=== PATIENT | female | born 1950 | race Caucasian/White ===

== ENCOUNTER → 2020-08-10 10:20 | Outpatient (BNV) | payer BC, SELFPAY | PROVIDERS: PCP Internal Medicine; Visit Provider Internal Medicine Medical Oncology | DX: D80.1 Nonfamilial hypogammaglobulinemia (principal) | CPT/HCPCS: 99213; 99214 ==

== ENCOUNTER 2023-06-21 14:05 | Outpatient (AMB) | payer BC, SELFPAY ==
[2023-06-21 14:09] VITALS: BP 106/62; PULSE 77; O2SAT 98; BMI 25.2
--- NOTE | 2023-06-21 14:09 | A.OFFPC_ITS ---
Vital Signs 06/21/23 14:09 Height 5 ft 3 in Weight 142 lb BMI 25.2 BP 106/62 Blood Pressure Location Lt brachial Position Sitting Pulse 77 Pulse Source Pulse Oximeter Pulse Oximetry (%) 98 Oxygen Delivery Method Room Air Intake Visit Reasons: Left foot swelling Switch Coupler: Not Required per policy Accompanied by: Self / Same As Patient Allergies midazolam [From Versed] Allergy (Verified 06/21/23 14:10) Vomiting doxycycline [From Periostat] Adverse Reaction (Mild, Verified 06/21/23 14:10) Redness of Skin hydroxyzine [Vistaril] Adverse Reaction (Unknown, Verified 06/21/23 14:10) Hypertension Atarax Allergy (Unknown, Uncoded 06/21/23 14:10) Elevated BP and Pulse Medication List - Last Reconciled 06/22/23 by Alexi Duong MD ascorbic acid (vitamin C) (Vitamin C) 500 mg PO DAILY aspirin 81 mg PO USEASDIRECTD [B12 500 mcg PO QWEEK] calcium citrate-vitamin D3 315 mg-5 mcg (200 unit) 1 tab PO USEASDIRECTD estradiol 0.01%(0.1mg/gram) 1 appful vaginal DAILY methocarbamol 500 mg PO QID PRN [multivitamin 1 tab PO DAILY] pyridoxine (vitamin B6) 100 mg PO 2XW triamcinolone acetonide 0.1% 1 appl topical BID Tobacco use date assessed: 01/09/23 Fall risk assessment: No Falls in past year Last assessed Fall Risk: 06/21/23 Dental Screening Dental Screen Date: 06/21/23 Did you have a dental visit in the last 12 months?: Yes Did you have a dental problem in the last 6 months where you did not have access to dental care?: No Was dental information given to patient?: Patient has dentist HPI Left foot swelling HPI Details leftr foot swellinhg fo a week PFSH Medical History Physical exam Urinary urgency Osteoarthritis 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 Erythema multiforme History of basal cell cancer Medial meniscus tear Diverticulosis Colonoscopy planned Right leg DVT Right patella fracture Hypogammaglobulinemia Surgical History History of colonoscopy History of Mohs 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 History of tubal ligation Family History Mother H/O mitral valve replacement COPD (chronic obstructive pulmonary disease) Hx of CABG Father Colon cancer Diabetes Brother CHF (congestive heart failure) COPD (chronic obstructive pulmonary disease) Brother ETOH abuse Liver cirrhosis Substance use disorder Brother ETOH abuse Substance use disorder Social History Household Members: None Housing: Condominium Are you a primary resident care aid to a significant other at home: No Do you presently have visiting nurse or other home services: No Alcohol intake: current Alcohol intake frequency: holidays/special occasions only Alcohol type: beer Patient Tobacco Use Status: Former Tobacco user Quit Date: 2001 Tobacco use type: Cigarette e-Cigarette/Vaping Use: Never Used Second Hand Smoke Exposure: Yes (when she was younger) service: No Current occupational status: retired Current occupational exposures/hazards: No Cognitive needs: No Hearing needs: No Vision needs: Yes Questionnaire PHQ-9 Over the last 2 weeks, how often have you been bothered by any of the following problems? 1. Little interest or pleasure in doing things: not at all 2. Feeling down, depressed, or hopeless: not at all 3. Trouble falling or staying asleep, or sleeping too much: not at all 4. Feeling tired or having little energy: not at all 5. Poor appetite or overeating: not at all 6. Feeling bad about yourself - or that you are a failure or have let yourself or your family down: not at all 7. Trouble concentrating on things, such as reading the newspaper or watching television: not at all 8. Moving or speaking so slowly that other people could have noticed. Or the opposite - being so fidgety or restless that you have been moving around a lot more than usual: not at all 9. Thoughts that you would be better off or of hurting yourself in some way: not at all Total score: 0 Depression Screening Interpretation: Negative Depression Screening Done: Yes 67443 - PHQ-9 Billing: Yes Source: Developed by Drs. Yovani Oliva, Windy Héctor Day and colleagues, with an educational perla from [employer]. Thrive Questionnaire Date Thrive assessed: 01/09/23 AUDIT C Alcohol Use Questionnaire (AUDIT-C) 1. How often do you have a drink containing alcohol?: Monthly or less 2. How many drinks containing alcohol do you have on a typical day when you are drinking?: 1 or 2 3. How often do you have six or more drinks on one occasion?: Never Total Score: 1 Score Reviewed/Action Taken: Yes SHARMAINE-7 AMB Questionnaire SHARMAINE-7 Date SHARMAINE - 7 assessed: 01/09/23 Source: Developed by Drs. Yovani Oliva, Héctor Ocampo and colleagues, with an educational perla from [employer]. Review of Systems Const Denies chills, Denies headache(s) and Denies weight loss ENT Denies headache(s) Card Denies chest pain, Denies syncope, Denies irregular heart rhythm and Denies dyspnea Resp Denies chest congestion, Denies cough and Denies dyspnea GI Denies abdominal pain, Denies change in stool character, Denies nausea and Denies vomiting Musc Denies deformity and Denies joint swelling Neuro Denies syncope and Denies headache(s) Physical exam (Primary Care) Vital Signs: Last Vital Signs Pulse 77 06/21/23 14:09 BP 106/62 06/21/23 14:09 Pulse Ox 98 06/21/23 14:09 Oxygen Delivery Method Room Air 06/21/23 14:09 BMI result Body Mass Index 25.2 Tobacco/Smoking Status: Tobacco use Status Tobacco use date assessed 01/09/23 06/21/23 14:10 Patient Tobacco Use Status Former Tobacco user 06/21/23 14:10 Tobacco use type Cigarette 06/21/23 14:10 e-Cigarette/Vaping Use Never Used 06/21/23 14:10 PHQ-9: PHQ-9 Score PHQ-9: Total score 0 06/21/23 14:10 Depression Screening Interpretation: Negative Thrive Assessment: Date of Thrive Assessment Date Thrive assessed 01/09/23 06/21/23 14:10 Const General: cooperative, comfortable, no acute distress and alert Neck Neck: Yes no lymphadenopathy Thyroid: Thyroid normal Resp Effort & Inspection: normal respiratory effort Auscultation: clear to auscultation bilaterally Percussion: percussion normal Cardio Jugular venous distension: no JVD Palpation: normal PMI Rate: regular rate Rhythm: regular rhythm Heart sounds: S1 normal heart sound present and S2 normal heart sound present GI Inspection: Yes normal to inspection Palpation (GI): No hepatosplenomegaly present Skin General skin exam: no rashes or lesions noted Extrem General: Yes no clubbing, cyanosis or edema Assessment and Plan Assessment & Plan (1) Swelling of left foot: Code(s): M79.89 - Other specified soft tissue disorders Plan: US ordered Orders: Orders US venous duplex LE LT 06/21/23 R60.0 - Localized edema Coding Level of Care Code Est Pt Level 3 (42674) Diagnoses Swelling of left foot M79.89
== END 2023-06-21 14:22 | disposition home or self-care (01) ==
PROVIDERS: PCP Internal Medicine; Visit Provider Internal Medicine
DX: M79.89 Other specified soft tissue disorders (principal)
CPT/HCPCS: 99213

== ENCOUNTER 2023-06-22 14:32 | Outpatient (REF) | payer BC, SELFPAY ==
--- NOTE | ~2023-06-22 | US_ITS ---
EXAMINATION: US VENOUS ULTRASOUND WITH DOPPLER LOWER EXTREMITY, LEFT CLINICAL INFORMATION: Localized edema COMPARISON: None available. TECHNIQUE: Ultrasound of the deep veins is performed from the hip to the calf with compression sonography and color and pulse Doppler assessment. Spectral analysis with color-flow imaging is performed. FINDINGS: There is normal venous compression and respiratory variation and augmented flow. The visualized common femoral vein, superficial femoral vein, profunda femoral vein, popliteal vein, and the trifurcation region shows no evidence of deep venous thrombosis. There is no significant popliteal fossa cyst. If the patient's symptoms persist, followup ultrasound in 5 days 7 days might be of value to exclude proximal propagation from a non-visualized calf vein. US/US venous duplex LE LT IMPRESSION: No DVT demonstrated in the left lower extremity.
== END 2023-06-22 14:33 | disposition home or self-care (01) ==
LOC: HO.US 14:32
PROVIDERS: PCP Internal Medicine; Visit Provider Internal Medicine
DX: R60.0 Localized edema (principal)
CPT/HCPCS: 93971

== ENCOUNTER 2024-01-11 10:01 | Outpatient (AMB) | payer BC, SELFPAY ==
[2024-01-11 10:02] VITALS: BP 102/60; PULSE 64; O2SAT 99; BMI 25.2
--- NOTE | 2024-01-11 10:02 | A.OFFPC_ITS ---
Vital Signs 01/11/24 10:02 Height 5 ft 3 in Weight 142 lb 8 oz BMI 25.2 BP 102/60 Blood Pressure Location Lt brachial Position Sitting Pulse 64 Pulse Source Pulse Oximeter Pulse Oximetry (%) 99 Oxygen Delivery Method Room Air Intake Visit Reasons: pe Production Quality Analyst Required: No Door Glass Installer: Not Required per policy Accompanied by: Self / Same As Patient Allergies midazolam [From Versed] Allergy (Verified 01/11/24 10:03) Vomiting doxycycline [From Periostat] Adverse Reaction (Mild, Verified 01/11/24 10:03) Redness of Skin hydroxyzine [Vistaril] Adverse Reaction (Unknown, Verified 01/11/24 10:03) Hypertension Atarax Allergy (Unknown, Uncoded 01/11/24 10:03) Elevated BP and Pulse Medication List - Last Reconciled 01/11/24 by Alexi Duong MD ascorbic acid (vitamin C) (Vitamin C) 500 mg PO DAILY aspirin 81 mg PO USEASDIRECTD [B12 500 mcg PO QWEEK] calcium citrate-vitamin D3 315 mg-5 mcg (200 unit) 1 tab PO USEASDIRECTD estradiol 0.01%(0.1mg/gram) 1 appful vaginal DAILY methocarbamol 500 mg PO QID PRN [multivitamin 1 tab PO DAILY] triamcinolone acetonide 0.1% 1 appl topical BID Tobacco use date assessed: 01/11/24 Fall risk assessment: No Falls in past year Last assessed Fall Risk: 01/11/24 Dental Screening Dental Screen Date: 01/11/24 Did you have a dental visit in the last 12 months?: Yes Did you have a dental problem in the last 6 months where you did not have access to dental care?: No Was dental information given to patient?: Patient has dentist HPI pe HPI Details healthy [facility] Medical History Physical exam Urinary urgency Osteoarthritis 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 Erythema multiforme History of basal cell cancer Medial meniscus tear Diverticulosis Colonoscopy planned Right leg DVT Right patella fracture Hypogammaglobulinemia Surgical History History of colonoscopy History of Mohs 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 History of tubal ligation Family History Mother H/O mitral valve replacement COPD (chronic obstructive pulmonary disease) Hx of CABG Father Colon cancer Diabetes Brother CHF (congestive heart failure) COPD (chronic obstructive pulmonary disease) Brother ETOH abuse Liver cirrhosis Substance use disorder Brother ETOH abuse Substance use disorder Social History Household Members: None Housing: Condominium Are you a primary aged or disabled carer to a significant other at home: No Do you presently have visiting nurse or other home services: No Alcohol intake: current Alcohol intake frequency: holidays/special occasions only Alcohol type: beer Patient Tobacco Use Status: Former Tobacco user Quit Date: 2001 Tobacco use type: Cigarette e-Cigarette/Vaping Use: Never Used Second Hand Smoke Exposure: Yes (when she was younger) service: No Current occupational status: retired Current occupational exposures/hazards: No Cognitive needs: No Hearing needs: No Vision needs: Yes (glasses) Questionnaire PHQ-9 Over the last 2 weeks, how often have you been bothered by any of the following problems? 1. Little interest or pleasure in doing things: not at all 2. Feeling down, depressed, or hopeless: not at all 3. Trouble falling or staying asleep, or sleeping too much: not at all 4. Feeling tired or having little energy: not at all 5. Poor appetite or overeating: not at all 6. Feeling bad about yourself - or that you are a failure or have let yourself or your family down: not at all 7. Trouble concentrating on things, such as reading the newspaper or watching television: not at all 8. Moving or speaking so slowly that other people could have noticed. Or the opposite - being so fidgety or restless that you have been moving around a lot more than usual: not at all 9. Thoughts that you would be better off or of hurting yourself in some way: not at all Total score: 0 Depression Screening Interpretation: Negative Depression Screening Done: Yes 66400 - PHQ-9 Billing: Yes Source: Developed by Drs. Yovani Oliva, Windy Barreto, Héctor Lion and colleagues, with an educational perla from [employer]. Thrive Questionnaire Date Thrive assessed: 01/11/24 I am a: Patient What is your living situation today?: I have a steady place to live Within the past 12 months, did the food you bought not last and you didn't have the money to get more?: Never true Within the past 12 months, did you worry whether your food would run out before you got money to buy more?: Never true Do you have trouble paying for medicines?: No Do you have trouble getting transportation to medical appointments?: No Do you have trouble paying your heating and electricity bill?: No Do you have trouble taking care of your child, family member or friend?: No Do you have trouble with day-to-day activities such as bathing, preparing meals, shopping, managing finances, etc.?: No Are you currently unemployed and looking for a job?: No Are you interested in more education?: No Please select the resources that you would like help with: None THRIVE Score: 0 AUDIT C Alcohol Use Questionnaire (AUDIT-C) 1. How often do you have a drink containing alcohol?: Monthly or less 2. How many drinks containing alcohol do you have on a typical day when you are drinking?: 1 or 2 3. How often do you have six or more drinks on one occasion?: Never Total Score: 1 Score Reviewed/Action Taken: Yes SHARMAIEN-7 AMB Questionnaire SHARMAINE-7 Date SHARMAINE - 7 assessed: 01/11/24 Feeling nervous, anxious, or on edge: 0 = Not at all Not being able to stop or control worryin = Not at all Worrying too much about different things: 0 = Not at all Trouble relaxin = Not at all Being so restless that it is hard to sit still: 0 = Not at all Becoming easily annoyed or irritable: 0 = Not at all Feeling afraid as if something awful might happen: 0 = Not at all Total SHARMAINE-7 score (0-4 normal; 5-9 mild; 10-14 moderate; 15-21 severe): 0 Source: Developed by Drs. Yovani Oliva, Windy Barreto, Héctor Lion and colleagues, with an educational perla from [employer]. SHARMAINE-7 Assessment Billing SHARMAINE-7 Assessment Tool: SHARMAINE-7 Assessment 48192 Review of Systems Const Denies chills, Denies fatigue, Denies headache(s) and Denies weight loss Eyes Denies change in vision, Denies diplopia and Denies eye pain ENT Denies vertigo, Denies dizziness, Denies headache(s) and Denies nasal discharge Card Denies chest pain, Denies rapid heart rate and Denies dyspnea on exertion Resp Denies chest congestion, Denies cough, Denies pain with cough and Denies dyspnea on exertion GI Denies abdominal pain, Denies hematochezia and Denies change in bowel habits Musc Denies myalgias, Denies arthralgias and Denies joint swelling Skin/Breast Denies lesions and Denies unusual bruising Neuro Denies vertigo, Denies dizziness, Denies headache(s) and Denies focal weakness Endo Denies fatigue Physical exam (Primary Care) Vital Signs: Last Vital Signs Pulse 64 01/11/24 10:02 BP 102/60 01/11/24 10:02 Pulse Ox 99 01/11/24 10:02 Oxygen Delivery Method Room Air 01/11/24 10:02 BMI result Body Mass Index 25.2 Tobacco/Smoking Status: Tobacco use Status Tobacco use date assessed 01/11/24 01/11/24 10:04 Patient Tobacco Use Status Former Tobacco user 01/11/24 10:04 Tobacco use type Cigarette 01/11/24 10:04 e-Cigarette/Vaping Use Never Used 01/11/24 10:04 PHQ-9: PHQ-9 Score PHQ-9: Total score 0 01/11/24 10:04 Depression Screening Interpretation: Negative Thrive Assessment: Date of Thrive Assessment Date Thrive assessed 01/11/24 01/11/24 10:04 Const General: cooperative, healthy appearing and no acute distress Orientation/consciousness: oriented to person, oriented to place and oriented to time [facility] Head: Yes normal to inspection, Yes normocephalic and Yes atraumatic Mouth: Normal oral and palatal mucosa present and tongue normal Throat: Yes posterior oropharynx normal and Yes uvula midline Eyes General: appearance normal, both eyes and all related structures Neck Neck: Yes normal visual inspection, Yes full ROM and Yes no lymphadenopathy Thyroid: Thyroid normal Carotids: normal carotid upstroke Chest Chest palpation & inspection: normal inspection of the chest Resp Effort & Inspection: normal respiratory effort and able to speak in complete sentences Auscultation: clear to auscultation bilaterally Cardio Jugular venous distension: no JVD Palpation: normal PMI Rate: regular rate Rhythm: regular rhythm Heart sounds: S1 normal heart sound present and S2 normal heart sound present GI Inspection: Yes normal to inspection Palpation (GI): Soft to palpation and No hepatosplenomegaly present Auscultation: normal bowel sounds General: Yes no CVA tenderness Back/Spine/Pelvis Back: no CVA tenderness Skin General skin exam: no rashes or lesions noted Neuro General: oriented to person, oriented to place and oriented to time Extrem General: Yes normal to inspection and Yes full ROM Assessment and Plan Assessment & Plan (1) Physical exam: Code(s): Z00.00 - Encounter for general adult medical examination without abnormal findings Plan: stable; do labs Orders: Orders Thyroid Stimulating Hormone Today Z13.29 - Encounter for screening for other suspected endocrine disorder Complete Blood Count Auto Diff Today Z13.0 - Encounter for screening for diseases of the blood and blood-forming organs and certain disorders involving the immune mechanism Vitamin D 25-OH Total Today Z13.9 - Encounter for screening, unspecified Lipid Panel Today Z13.220 - Encounter for screening for lipoid disorders Comprehensive [place]. Panel Fast Today Z13.9 - Encounter for screening, unspecified Medications: Refilled methocarbamol 500 mg PO QID PRN 90 tabs 5RF pain Coding Level of Care Code Est Pt Prev Care >65y(50671) Diagnoses Physical exam Z00.00 Additional Codes SHARMAINE-7 Assessment Billing - SHARMAINE-7 Assessment Tool: SHARMAINE-7 Assessment 48043 ([id number])
== END 2024-01-11 10:50 | disposition home or self-care (01) ==
PROVIDERS: Visit Provider Internal Medicine
DX: Z00.00 Encounter for general adult medical examination without abnormal findings (principal)
CPT/HCPCS: 99397

== ENCOUNTER 2024-01-11 10:58 | Outpatient (REF) | payer BC, SELFPAY ==
[2024-01-11 11:40] LABS: MANUAL DIFF FLAG NO
[2024-01-11 12:01] LABS: Basophils Percent Auto 0.7 % (0-2); Eosinophils Absolute Auto 0.2 X10*3/uL (0.0-0.4); Eosinophils Percent Auto 2.9 % (0-4); Hematocrit 40.6 % (37.0-47.0); Imm Gran Abs Auto 0.01 X10*3/uL (0.00-0.03); Imm Gran Pct Auto 0.2 % (0.0-0.4); Lymphocytes Absolute Auto 1.5 X10*3/uL (1.2-4.9); Lymphocytes Percent Auto 27.3 % (20-40); Mean Corpuscular HGB Conc 34.5 g/dl (31.0-35.0); Mean Corpuscular Hemoglobin 33.3 pg (27.0-33.0); Mean Corpuscular Volume 96.4 fL (80.0-98.0); Mean Platelet Volume 9.8 fL (9.4-12.3); Monocytes Absolute Auto 0.4 X10*3/uL (0.1-1.2); Monocytes Percent Auto 6.9 % (2-11); Neutrophils Absolute Auto 3.4 x10*3/uL (2.0-8.3); Platelet Count 211 X10*3/uL (160-400); Red Blood Count 4.21 X10*6/uL (4.20-5.50); Red Cell Distribution Width 11.9 % (11.0-16.0); White Blood Count 5.5 X10*3/uL (4.8-10.8)
[2024-01-11 12:50] LABS: Alanine Aminotransferase 22 U/L (0-31); Albumin Level 4.3 g/dL (3.5-5.0); Alkaline Phosphatase 76 U/L (39-117); Anion Gap 13 (12-20); Aspartate Amino Transferase 25 U/L (5-31); Bilirubin Total 0.5 mg/dL (0.0-1.0); Blood Urea Nitrogen 21 mg/dL (9-16); Calcium 9.9 mg/dL (8.4-10.2); Carbon Dioxide 25 mmol/L (22-29); Chloride 107 mmol/L (96-108); Cholesterol 187 mg/dL (<200); Estimated Glomerular Filt Rate > 60; Glucose Fasting 95 mg/dL (60-99); HDL Cholesterol 60 mg/dL (>40); LDL Cholesterol Calculated 112 mg/dL (<100); Potassium 4.2 mmol/L (3.3-5.1); Sodium 141 mmol/L (135-145); Total Protein 6.9 g/dL (6.5-8.0); Triglycerides 78 mg/dL (<150)
[2024-01-11 12:51] LABS: Thyroid Stimulating Hormone 1.13 uIU/mL (0.32-4.0); Vitamin D 25-OH Total 46.8 ng/mL (>30)
== END 2024-01-11 10:59 | disposition home or self-care (01) ==
LOC: HO.LAB 10:58
PROVIDERS: PCP Internal Medicine; Visit Provider Internal Medicine
DX: Z13.0 Encounter for screening for diseases of the blood and blood-forming organs and certain disorders involving the immune mechanism (principal); Z13.29 Encounter for screening for other suspected endocrine disorder; Z13.220 Encounter for screening for lipoid disorders; Z20.2 Contact with and (suspected) exposure to infections with a predominantly sexual mode of transmission
CPT/HCPCS: 36415; 80053; 80061; 82306; 84443; 85025

== ENCOUNTER 2025-01-14 12:24 | Outpatient (AMB) | payer BC, SELFPAY ==
--- NOTE | 2025-01-14 12:26 | MHC.PC.OV ---
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 Accompanied by: Self / Same As Patient Allergies midazolam [From Versed] Allergy (Verified 01/14/25 12:35) Vomiting doxycycline [From Periostat] Adverse Reaction (Mild, Verified 01/14/25 12:35) Redness of Skin hydroxyzine [Vistaril] Adverse Reaction (Unknown, Verified 01/14/25 12:35) Hypertension Atarax Allergy (Unknown, Uncoded 01/14/25 12:35) Elevated BP and Pulse Medication List - Last Reconciled 01/14/25 by Gretel Nuñez MD ascorbic acid (vitamin C) (Vitamin C) 500 mg PO DAILY aspirin 81 mg PO USEASDIRECTD [B12 500 mcg PO QWEEK] calcium citrate-vitamin D3 315 mg-5 mcg (200 unit) 1 tab PO USEASDIRECTD estradiol 0.01%(0.1mg/gram) 1 appful vaginal DAILY [multivitamin 1 tab PO DAILY] triamcinolone acetonide 0.1% 1 appl topical BID Tobacco use date assessed: 01/14/25 Fall risk assessment: No Falls in past year Last assessed Fall Risk: 01/14/25 Dental Screening Dental Screen Date: 01/14/25 Did you have a dental visit in the last 12 months?: Yes Did you have a dental problem in the last 6 months where you did not have access to dental care?: No Was dental information given to patient?: Patient has dentist HPI HPI Comments History of Present Illness Details The patient is a 74-year-old female presenting for a wellness exam and routine health maintenance. She has hypogammaglobulinemia which is stable. Her vaccinations are up-to-date with a noted pneumococcal vaccine administered at 66 years of age and COVID-19 vaccination completed. She underwent a colonoscopy in 2021 and last had a mammogram in 2019. No bone density test has been accomplished yet, although osteoporosis screening was suggested due to age and potential fragility concerns. Cataracts were previously identified, with further investigation required in upcoming months due to evolving visual disruptions. Assessment of blood pressure reveals variations but typically remains controlled under her regimen. Ongoing medication includes vitamin C, baby aspirin, vitamin B12 (twice weekly due to her vegetarian diet), calcium with vitamin D, vaginal estradiol applications, multivitamins, and a steroid cream. Her prior varicose veins assessment indicates no significant pain warranting immediate invasive corrective measures, hence a conservative management approach is currently in place. - Pneumococcal vaccine administered at 66 years - COVID-19 vaccination completed - Colonoscopy: 2021 - Mammogram: Last done in 2019 - No bone density screening conducted yet - Discussion of osteoporosis screening due to advanced age - Lifestyle: Ceased smoking, limited alcohol consumption [facility] Medical History Physical exam Urinary urgency Osteoarthritis 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 Erythema multiforme History of basal cell cancer Medial meniscus tear Diverticulosis Colonoscopy planned Right leg DVT Right patella fracture Hypogammaglobulinemia Surgical History History of colonoscopy History of Mohs 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 History of tubal ligation Family History Mother H/O mitral valve replacement COPD (chronic obstructive pulmonary disease) Hx of CABG Father Colon cancer Diabetes Brother CHF (congestive heart failure) COPD (chronic obstructive pulmonary disease) Brother ETOH abuse Liver cirrhosis Substance use disorder Brother ETOH abuse Substance use disorder Social History Household Members: None Housing: Condominium Are you a primary career developer to a significant other at home: No Do you presently have visiting nurse or other home services: No Alcohol intake: current Alcohol intake frequency: holidays/special occasions only Alcohol type: beer Patient Tobacco Use Status: Former Tobacco user Tobacco use type: Cigarette e-Cigarette/Vaping Use: Never Used Second Hand Smoke Exposure: Yes (when she was younger) service: No Current occupational status: retired Current occupational exposures/hazards: No Cognitive needs: No Hearing needs: No Vision needs: Yes (glasses) Questionnaire PHQ-9 Over the last 2 weeks, how often have you been bothered by any of the following problems? 1. Little interest or pleasure in doing things: not at all 2. Feeling down, depressed, or hopeless: not at all 3. Trouble falling or staying asleep, or sleeping too much: not at all 4. Feeling tired or having little energy: not at all 5. Poor appetite or overeating: not at all 6. Feeling bad about yourself - or that you are a failure or have let yourself or your family down: not at all 7. Trouble concentrating on things, such as reading the newspaper or watching television: not at all 8. Moving or speaking so slowly that other people could have noticed. Or the opposite - being so fidgety or restless that you have been moving around a lot more than usual: not at all 9. Thoughts that you would be better off or of hurting yourself in some way: not at all Total score: 0 Depression Screening Interpretation: Negative Depression Screening Done: Yes 74282 - PHQ-9 Billing: Yes Source: Developed by Drs. Yovani Oliva, Windy Barreto, Héctor Lion and colleagues, with an educational perla from [employer]. Thrive Questionnaire Date Thrive assessed: 01/14/25 I am a: Patient What is your living situation today?: I have a steady place to live Within the past 12 months, did the food you bought not last and you didn't have the money to get more?: Never true Within the past 12 months, did you worry whether your food would run out before you got money to buy more?: Never true Do you have trouble paying for medicines?: No Do you have trouble getting transportation to medical appointments?: No Do you have trouble paying your heating and electricity bill?: No Do you have trouble taking care of your child, family member or friend?: No Do you have trouble with day-to-day activities such as bathing, preparing meals, shopping, managing finances, etc.?: No Are you currently unemployed and looking for a job?: No Are you interested in more education?: No Please select the resources that you would like help with: None Currently or been in a relationship where the following occur: No concerns reported THRIVE Score: 0 AUDIT C Alcohol Use Questionnaire (AUDIT-C) 1. How often do you have a drink containing alcohol?: Never Total Score: 0 Score Reviewed/Action Taken: No SHARMAINE-7 AMB Questionnaire SHARMAINE-7 Date SHARMAINE - 7 assessed: 01/14/25 Feeling nervous, anxious, or on edge: 0 = Not at all Not being able to stop or control worryin = Not at all Worrying too much about different things: 0 = Not at all Trouble relaxin = Not at all Being so restless that it is hard to sit still: 0 = Not at all Becoming easily annoyed or irritable: 0 = Not at all Feeling afraid as if something awful might happen: 0 = Not at all Total SHARMAINE-7 score (0-4 normal; 5-9 mild; 10-14 moderate; 15-21 severe): 0 Source: Developed by Drs. Yovani Oliva, Windy Barreto, Héctor Lion and colleagues, with an educational perla from [employer]. SHARMAINE-7 Assessment Billing SHARMAINE-7 Assessment Tool: SHARMAINE-7 Assessment 16409 Review of Systems Const All systems reviewed & are unremarkable except as noted in HPI and below Card Denies chest pain at rest, Denies chest pain with activity, Denies edema, Denies irregular heart rhythm, Denies claudication, Denies dyspnea, Denies dyspnea on exertion, Denies orthopnea, Denies paroxysmal nocturnal dyspnea and Denies slow heart rate Resp Denies cough, Denies dyspnea and Denies dyspnea on exertion GI Denies abdominal pain, Denies change in bowel habits, Denies excessive flatus, Denies nausea and Denies vomiting Skin/Breast Denies bleeding lesions, Denies changing lesions and Denies rash Neuro Denies lack of coordination Physical exam (Primary Care) BMI result Body Mass Index 24.3 Tobacco/Smoking Status: Tobacco use Status Tobacco use date assessed 01/11/24 01/14/25 12:29 Patient Tobacco Use Status Former Tobacco user 01/14/25 12:29 Tobacco use type Cigarette 01/14/25 12:29 e-Cigarette/Vaping Use Never Used 01/14/25 12:29 PHQ-9: PHQ-9 Score PHQ-9: Total score 0 01/14/25 12:29 Depression Screening Interpretation: Negative Thrive Assessment: Date of Thrive Assessment Date Thrive assessed 01/14/25 01/14/25 12:29 Currently or been in a relationship where the following occur: No concerns reported HENMT Head: Yes normal to inspection, Yes normocephalic and Yes atraumatic Ears: external ears normal Eyes General: appearance normal, both eyes and all related structures Eyelids: Yes eyelids normal Conjunctivae: conjunctivae normal Neck Neck: Yes normal visual inspection and Yes supple Resp Effort & Inspection: normal respiratory effort Auscultation: clear to auscultation bilaterally Cardio Jugular venous distension: no JVD Rate: regular rate Rhythm: regular rhythm Heart sounds: S1 normal heart sound present and S2 normal heart sound present GI Inspection: Yes normal to inspection Palpation (GI): Soft to palpation and nontender Auscultation: normal bowel sounds Skin General skin exam: no rashes or lesions noted Neuro General: no focal motor deficits Extrem General: Yes full ROM Psych Appearance: grossly normal Coding Level of Care Code Est Pt Prev Care >65y(87662) Diagnoses Physical exam Z00.00 Hypogammaglobulinemia D80.1 Additional Codes PHQ-9 - 31451 - PHQ-9 Billing: Yes ([id number]) SHARMAINE-7 Assessment Billing - SHARMAINE-7 Assessment Tool: SHARMAINE-7 Assessment 90126 ([id number]) Time Spent (min) 30 Assessment & Plan Assessment & Plan (1) Physical exam: Code(s): Z00.00 - Encounter for general adult medical examination without abnormal findings Category: Medical (2) Hypogammaglobulinemia: Code(s): D80.1 - Nonfamilial hypogammaglobulinemia Category: Medical Plan She was advised to maintain her existing medication schedule while considering her vegetarian diet, and encouraged her proactive approach to managing her health. The importance of continued blood pressure monitoring and an updated focus on health screenings, including potential osteoporosis assessment, were reiterated. A conservative and observational approach to varicose veins remains practical given symptom stability, with expectations for upcoming eye appointments to manage cataract evaluations to determine necessary interventions. Contingent on familial medical history, ongoing precautionary measures support her overall health strategy. Patient was informed and verbally consented to the use of an ambient scribe for clinic note documentation during this visit. Orders: Orders Vitamin D 25-OH Total Today E55.9 - Vitamin D deficiency, unspecified Comprehensive [place]. Panel Fast Today Z00.00 - Encounter for general adult medical examination without abnormal findings Complete Blood Count Auto Diff Today D80.1 - Nonfamilial hypogammaglobulinemia Lipid Panel Today Z00.00 - Encounter for general adult medical examination without abnormal findings
[2025-01-14 12:27] VITALS: BP 120/78; BMI 24.3
--- OUTSIDE RECORDS SUMMARY | 2025-01-14 13:43 | XMS_ITS | Data Portability ---
Author Organization [place] - [facility], Allergy Address [address] [place] [phone] Care Team Providers Care Cable Respooler Name Role Phone RENETTA OCHOA Primary Care Provider Assessment No assessment recorded. Plan of Treatment Reminders Order Date Submit Date Provider Last Modified By Organization Details Last Modified Time Details Appointments Establish ed 15 2024 11:15A M ALVINA GIVENS PA-C Not available Not available Not available Lab None recorded. Referral None recorded. Procedures None recorded. Surgeries None recorded. Imaging None recorded. Medication Orders None recorded. Patient TargetsNo targets recorded. Patient Instructions Encounter Date Encounter Id Patient Instructions Last Modified By Organization Details Last Modified Time 03/18/2024 [id number] Patient presents for evaluation of ears. Cerumen successfully removed bilaterally, which patient tolerated well. Otologic exam otherwise unremarkable. Patient reported hearing returned to baseline thereafter and declined audiometric testing. Return in 6-12 months for cerumen removal. Avoid Q-tips. Avoid or protect against loud noise. Recommend annual audiometric testing, sooner with perceived change. Patient understands to call sooner with any issues that arise. [email or web address] Not available 03/18/2024 11:42:52 Reason for Referral None Reported. Results Created Date Observation Date Name Description Value Unit Range Abnormal Flag Note LastModifiedBy Organization Detail LastModifiedTime 05/01/20 24 10/01/2019 imagi ng/di agnos tic resul t No observ ation record ed. [email or web address] Not Available 06:22:27 05/01/20 24 11/08/2019 imagi ng/di agnos tic resul t No observ ation record ed. [email or web address] Not Available 06:22:31 05/01/20 24 11/08/2019 audio gram No observ ation record ed. [email or web address] Not Available 06:22:55 Result Notes None recorded. Problems Name Problem SNOMED Code Status Onset Date Resolution Date Notes Provider Name and Address Organization Details Recorded Time Impacted cerumen of bilateral ears 52966236641 76133 Active 2018 Impacted cerumen, bilateral ; Note: Date Diagnosed : 04/12/2019 10:18 AM (H61.23) Not Available [facility] 4 03:09:24 Bilateral tinnitus 50823893601 02 Active 2019 Tinnitus, bilateral ; Note: Date Diagnosed : 11/08/2019 10:39 AM (H93.13) Not Available [facility] 4 03:09:24 Sensorine ural hearing loss 92422159 Active 2019 Sensorine ural hearing loss, unilatera l, left ear, with unrestric lory hearing on the contralat eral side; Note: Date Diagnosed : 11/08/2019 10:39 AM (H90.42) Not Available [facility] 4 03:09:25 Problem Notes None recorded. Procedures Surgical History Date Name Laterality Status Provider Name and Address Organization Details Recorded Time 4 Cerumen removal without microscope bilat completed HUMAIRA KITCHEN PA-C [address] [place] [address], [phone], [facility] - [facility] 03/18/2024 11:24:35 Imaging Results Imaging Date Name Status LastModified by Organiz ation Details LastModified Time 10/01/2019 imaging/diagno stic result completed Information not available 05/01/2024 06:22:27 11/08/2019 imaging/diagno stic result completed Information not available 05/01/2024 06:22:31 11/08/2019 audiogram completed Information not available 05/01/2024 06:22:55 Procedure Notes None recorded. Medical Equipment None Reported. Allergies Allergen ID Allergen Name Allergen Category Reaction Reaction Severity Criticality Documentation Date Start Date Code Code System Note Provider Name and Address Organization Details Recorded Time 541716 midazolam hydrochlo ride medicatio n other Not available Not available 01/23/2024 82564 8 RxNorm React ion: unkno wn, unspe cifie d;; Not Available [facility] 4 01:13:12 881260 Periostat medicatio n Not available Not available Not available 01/23/2024 66516 0 RxNorm React ion: other react ion, intol eranc e; Not Available [facility] 4 01:13:13 733359 Atarax medicatio n Not available Not available Not available 01/23/2024 65554 6 RxNorm React ion: other react ion, intol eranc e; Not Available [facility] 4 01:13:14 Medications Name Sig Start Date Stop Date Status Note LastModified by Organization Details LastModified Time Vitamin C 500 mg tablet 2018 active Medicatio n ID: [id number] Br and Name: Vitamin C Send Method: E-Prescri bed Subs Allowed: subs OK Medica tionGener icName: Vitamin C Not Available Not Available Not Available triamcinol one acetonide 0.1 % topical ointment 2019 active Medicatio n ID: [id number] Du ration Value: 14 Brand Name: triamcino lone acetonide Send Method: E-Prescri bed Subs Allowed: subs OK Specia l Instructi on: APPLY THIN COAT TO AFFECTED AREA TWICE A DAY Medic ationGene ricName: triamcino lone acetonide Not Available Not Available Not Available estradiol 0.01% (0.1 mg/gram) vaginal cream INSERT 1 GRAM VAGINALLY AT BEDTIME TWICE WEEKLY active Not Available Not Available No t Available multivitam in capsule 2018 active Medicatio n ID: [id number] Br and Name: multivita min Send Method: E-Prescri bed Subs Allowed: subs OK Medica tionGener icName: multivita min Not Available Not Available Not Available Probiotic 2019 active Medicatio n ID: [id number] Br and Name: probiotic Send Method: E-Prescri bed Subs Allowed: subs OK Medica tionGener icName: probiotic Not Available Not Available Not Available Citracal-D 3 Gummies 250 mg-12.5 mcg (500 unit) chewable tablet 2018 active Medicatio n ID: [id number] Br and Name: Citracal + D3 (calcium phos) Sen d Method: E-Prescri bed Subs Allowed: subs OK Medica tionGener icName: Citracal + D3 (calcium phos) Not Available Not Available Not Available Vitals Date Recorded Body height Body mass index (BMI) Body weight Provider Name and Address Organization Details Last Updated DateTime 03/18/2024 160.02 cm 24.4 kg/m2 90281.75 g Ulises Welch MA - [facility] 03/18/2024 11:19:22 Social History None recorded. Functional Status None recorded. Mental Status None recorded. Family History Nothing Reported. Medical History No medical history recorded. Gynecological HistoryNo gynecological history recorded. Obstetrics History GPAL:G 0 P 0 0 0 0 Past Encounters Encounter ID Performer Location Encounter Start Date Encounter Closed Date Diagnosis/Indication Diagnosis SNOMED-CT Code Diagnosis ICD10 Code Diagnosis Note [id number] HUMAIRA KITCHEN PA-C [facility] [address] [phone] 03/18/2024 10:26:40 03/18/2024 11:28:18 Impacted cerumen of bilateral ears 1302208846 850217 H61.23 Health Concerns Section Related Observation LastModified by Organization Detai ls LastModified Time None Recorded Concern Status LastModified by Organization Details LastModified Time None Recorded Advance Directives Directive None Recorded Payers Encounter Date Sequence Insurance Name Policy Number Policy Oro Covered Member ID Oro Member ID Guarantor Name 03/18/[address] 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 Reports she feels her hearing is good. Endorses intermittent non-pulsatile tinnitus, changed character a few weeks ago and became machine-like, but now back to normal sound. No otalgia nor otorrhea. MARTINEZ GONZALEZ MD [address] [place] [address], [phone], [facility] - [facility] 03/18/2024 22:09:09 OBGyn Episode No OBEpisode recorded.
--- OUTSIDE RECORDS SUMMARY | 2025-01-14 13:44 | XMS_ITS | Data Portability ---
Author Organization [place] - [facility],, ORSHNI COLE MD Address [address] [facility] [place] [address] Care Team Providers Care Nut Roaster Name Role Phone RENETTA OCHOA Primary Care Provider [phone] Assessment No assessment recorded. Plan of Treatment Reminders Order Date Submit Date Provider Last Modified By Organization Details Last Modified Time Details Appointments None recorded. Lab pap test, thinprep, cervical 2019 020 [facility], Cytopathology Service, [address] [place], [address], 0 07:53:19 wet mount, vaginal 2019 020 [email or web address] In-Office Order, Internal Use Only DO Not Attach Compendium DO Not Attach Compendium, Do Not Delete/merge, [id number] 0 11:07:12 pap test, thinprep, cervical 2018 019 [email or web address] [facility], Cytopathology Service, [address] [place], [address], 9 07:32:45 Referral None recorded. Procedures None recorded. Surgeries None recorded. Imaging MAMMO, screening , digital, bilateral 2019 020 [facility] (Mammography), [address] [place], [address], 0 15:20:42 bone density 2019 020 [email or web address] [facility], [address], [address], [place], [address], 2 07:50:14 MAMMO, screening , digital, bilateral 2018 019 [email or web address] [facility] Orders, [address], [address], [place], [address], 0 07:56:09 Medication Orders triamcino lone acetonide 0.1 % topical ointment 2019 020 [id number], [address] [place], [address], 0 09:07:03 triamcino lone acetonide 0.1 % topical ointment 2018 019 INTERFACE [id number], [address] [place], [address], 9 10:04:10 Patient TargetsNo targets recorded. Patient Instructions Encounter Date Encounter Id Patient Instructions Last Modified By Organization Details Last Modified Time 05/07/2019 [id number] She is here for a new patient visit for a problem. She notes that she has had 2 to 4 year history of bumps on the vulva, and in the past year she has also developed pruritus of the skin down there. More in the back. She had a knee fracture then subsequent saddle embolus in 2017. Last obstetrics gyn physician visit with Dr. Archer was in 2009, last pap ws 2006. She works at [employer] living at the [employer] in [place]. On exam: the bumps that she noted are bilateral sebaceous cysts, ranging from 2 to 7 mm in size, not inflamed, in the skin of the bilateral perineum and perirectal areas. The tisuses in the lower perineum also have lichen sclerosis changes, this is where she notes the pruritus, there is no ulceration, just thinning of the skin noted here. She is reassured that all this seems to be benign. Will rx with topical Aristocort, call if the pruritus persists, then would do a biopsy. Also she is overdue for annual and pap, return soon for this, she agrees. Not available 05/07/2019 11:32:08 07/04/2019 [id number] She is here for annual exam. She has bene using the aristocort topically and notes that her pruritus is nearly resolved. Note from 05/07/19: She is here for a new patient visit for a problem. She notes that she has had 2 to 4 year history of bumps on the vulva, and in the past year she has also developed pruritus of the skin down there. More in the back. She had a knee fracture then subsequent saddle embolus in 2017. Last obstetrics gyn physician visit with Dr. Archer was in 2009, last pap ws 2006. She works at [employer] at the [employer] in [place]. On exam: the bumps that she noted are bilateral sebaceous cysts, ranging from 2 to 7 mm in size, not inflamed, in the skin of the bilateral perineum and perirectal areas. The tisuses in the lower perineum also have lichen sclerosis changes, this is where she notes the pruritus, there is no ulceration, just thinning of the skin noted here. She is reassured that all this seems to be benign. Will rx with topical Aristocort, call if the pruritus persists, then would do a biopsy. Also she is overdue for annual and pap, return soon for this, she agrees. ___ She appears to be doing well. She is advised to get 1500 mg of calcium daily into her diet and supplements combined. We discussed the benefits of adequate vitamin D supplementation to at least 400 units daily, daily aerobic exercise of 30 minutes, and stress reduction. Monthly self breast exam was taught, and stressed, and is advised to call if she discovers any new mass in the breast. Seat belt use for herself and passengers advised. The significant health benefits of becoming and remainig fit, with an optimal BMI, were also discussed. We discussed the potential reduction in chronic discomfort, the diminished risks of hypertension, diabetes, and heart disease with the proper weight management, and improved mobility as she ages. Strategies to reach and maintain her target weight wer discussed in detail, all questions answered. Not available 07/04/2019 08:58:46 07/31/2020 [id number] atrophic vaginit is: care instructions Not available 07/31/2020 09:05:52 learning about healthy weight Not available 07/31/2020 09:05:52 frequent urinati on: care instructions Not available 07/31/2020 09:07:00 She is here for annual exam, is doing well but has developed increased urinary frequency which limits her walks out of doors. She notes that the Aristocort has resolved the vulvar pruritus. She would like to continue that. She also has had a vaginal odor for a year, is using the Vagisil odor block . ____ note from 2019: She is here for annual exam. She has been using the aristocort topically and notes that her pruritus is nearly resolved. Wet scar are negative for clue cells, await pap results. No etiology for her vaginal odor at this time. Continue Aristocort. We discussed the benefit of E2 vaginal cream for possible improvement of the increased frequency of urination and urgency. She will research this and then get back to me if she wants to do a telehealth consult for this. She has some hesitation in using hormones, all the problems with them. She is advised that the E2 cream is very safe. She appears to be doing well. She is advised to get 1500 mg of calcium daily into her diet and supplements combined. We discussed the benefits of adequate vitamin D supplementation to at least 400 units daily, daily aerobic exercise of 30 minutes, and stress reduction. Monthly self breast exam was taught, and stressed, and is advised to call if she discovers any new mass in the breast. Not available 07/31/2020 09:10:12 Reason for Referral None Reported. Results Created Date Observation Date Name Description Value Unit Range Abnormal Flag Note LastModifiedBy Organization Detail LastModifiedTime 07/31/2007/31/2020 wet mount , elyssa al Clue Cells negati ve Not Available In-Office Order Internal Use Only DO Not Attach Compendium DO Not Attach Compendium, Do Not Delete/merge, [id number] 07/31/2020 09:06:34 07/31/20 20 07/31/2020 wet mount , vagin al Trichomonas negati ve Not Available In-Office Order Internal Use Only DO Not Attach Compendium DO Not Attach Compendium, Do Not Delete/merge, [id number] 07/31/2020 09:06:34 07/31/20 20 07/31/2020 wet mount , vagin al Hyphae negati ve Not Available In-Office Order Internal Use Only DO Not Attach Compendium DO Not Attach Compendium, Do Not Delete/merge, [id number] 07/31/2020 09:06:34 07/31/20 20 07/31/2020 wet mount , vagin al atrophic epithelium positi ve Not Available In-Office Order Internal Use Only DO Not Attach Compendium DO Not Attach Compendium, Do Not Delete/merge, [id number] 07/31/2020 09:06:34 07/04/20 19 07/04/2019 pap test, thinp rep, cervi zulma [email or web address] ThinP rep Pap, Image d: NEGAT CINDA FOR SQUAM OUS INTRA EPITH ELIAL LESIO N AND MALIG AMELIA . Atrop hy. Rd [address] a , [place]( CP) (Case elect shahram panchito davian d 07 08 2019) ADEQU ACY: Satis facto ry . SOURC E: ThinP rep Pap HPV IF ASCUS , Cervi zulma, Image d CLINI ZULMA INFOR MATIO N: HPV If Diagn osis of ASCUS . Z12.4 Not Available [facility], Cytopathology Service [address], [place], [address], 07/08/2019 12:21:51 07/31/20 20 07/31/2020 pap test, thinp rep, cervi zulma [email or web address] ThinP rep Pap, Image d: NEGAT CINDA FOR SQUAM OUS INTRA EPITH ELIAL LESIO N AND MALIG AMELIA . Atrop hy. Rd [address] a , CT( CP) (Case elect shahram keenancarmelina davian d 08 04 2020) ADEQU ACY: Satis facto ry . SOURC E: ThinP rep Pap HPV IF ASCUS , Cervi zulma, Image d CLINI ZULMA INFOR MATIO N: HPV If Diagn osis of ASCUS . LPS 07/04 Neg, z12.4 . Not Available [facility], Cytopathology Service [address], [place], [address], 08/04/2020 12:21:03 07/04/20 19 06/22/2019 MAMMO , katyae scotty, digit al, bilat eral No observ ation record ed. BARCODE Not Available 2018 08:41:52 08/12/20 20 08/12/2020 MAMMO , scree scotty, digit al, bilat eral No observ ation record ed. [facility] Orders [address] [facility] [address], [place], [address], 08/13/2020 08:06:47 Result Notes None recorded. Problems Name Problem SNOMED Code Status Onset Date Resolution Date Notes Provider Name and Address Organization Details Recorded Time Lichen sclerosus et atrophicus Active 2018 Roshni Cole MD [address], [place], [address], [place] - [facility], 9 11:31:45 Hypogammaglobu linemia 508491883 Active 2019 Kiley benito, [place] - [facility], 0 08:38:18 Increased frequency of urination 172119456 Active 2019 Roshni Cole MD [address], [place], [address], [place] [facility], 0 09:06:13 Vaginal odor 200645609 Active 2019 Roshni Cole MD [address], [place], [address], [place] [facility], 0 09:06:21 Problem Notes None recorded. Procedures Surgical History Date Name Laterality Status Provider Name and Address Organization Details Recorded Time 5 Knee arthroscopy/s urgery completed Julia Quispe in [facility], 05/07/2019 08:37:21 9 Tubal Ligation completed Julia Quispe in [facility], 05/07/2019 08:38:02 Imaging Results Imaging Date Name Status LastModified by Organiz ation Details LastModified Time 06/22/2019 MAMMO, screening, digital, bilateral completed BARCODE Information not available 07/04/2019 08:41:52 08/12/2020 MAMMO, screening, digital, bilateral completed [facility] Orders [address], [place], [address], 08/13/2020 08:06:47 Procedure Notes None recorded. Medical Equipment None Reported. Allergies Allergen ID Allergen Name Allergen Category Reaction Reaction Severity Criticality Documentation Date Start Date Code Code System Note Provider Name and Address Organization Details Recorded Time Atarax medicatio n irregular heart rate Not available Not available 05/07/2019 49169 6 RxNorm incre ase bp JULIAN Macias in [facility], 9 08:25:01 65163 Periostat medicatio n rash Not available Not available 05/07/2019 40636 0 RxNorm JULIAN Macias in [facility], 9 08:25:45 84692 bisacodyl medicatio n abdominal pain Not available Not available 05/07/2019 1596 RxNorm laxit cinda JULIAN Macias in [facility], 9 08:26:38 02374 midazolam hydrochlo ride medicatio n vomiting Not available Not available 05/07/201934920 8 RxNorm JULIAN Mcaias in [facility], 9 08:27:06 Medications Name Sig Start Date Stop Date Status Note LastModified by Organization Details LastModified Time amoxicillin 500 mg capsule 05/07 completed Not Available Not Available Not Available methocarbam ol 500 mg tablet TAKE 1 TABLET BY MOUTH EVERY 6 HOURS NEEDED FOR PAIN AND MUSCLE SPASMS 07/31 completed Not Available Not Available Not Available dexamethaso ne 0.5 mg/5 mL oral elixir 07/31 completed Not Available Not Available Not Available benzonatate 100 mg capsule 05/07 completed Not Available Not Available Not Available triamcinolo ne acetonide 0.1 % topical ointment APPLY THIN COAT TO AFFECTED AREA TWICE A DAY active Not Available Not Available No t Available metronidazo le 0.75 % topical cream 05/07 completed Not Available Not Available Not Available montelukast 10 mg tablet 05/07 completed Not Available Not Available Not Available fluticasone propionate 50 mcg/actuati on nasal spray,suspe nsion SPRAY 1 SPRAY INTO EACH NOSTRIL EVERY DAY active Not Available Not Available No t Available doxycycline hyclate 100 mg tablet TAKE 1 TABLET BY MOUTH TWICE A DAY 07/31 completed Not Available Not Available Not Available naproxen 500 mg tablet active Not Available Not Available Not Available Vitamin C active Not Available Not Zuri ilable Not Available Citracal plus D active Not Available Not Available Not Available Multi Vitamin active Not Available Not Available Not Available Shingrix (PF) 50 mcg/0.5 mL intramuscul ar suspension, kit ADM 0.5ML IM UTD active Not Available Not Available No t Available Fluad Quad 5230-0998(6 5yr up)(PF) 60 mcg (15 mcg x 4)/0.5mL IM syringe ADM 0.5ML IM UTD active Not Available Not Available No t Available Vitals Date Recorded Body height Body mass index (BMI) Body weight Heart rate Systolic blood pressure Diastolic blood pressure Provider Name and Address Organization Details Last Updated DateTime 9 160.02 cm 27 kg/m2 40013.4 8 g 71 /min 117 mm[Hg] 63 mm[Hg] Julia Quispe in [facility], 9 08:27:28 Date Recorded Body height Body mass index (BMI) Body weight Heart rate Systolic blood pressure Diastolic blood pressure Provider Name and Address Organization Details Last Updated DateTime 9 160.02 cm 27.2 kg/m2 25960.7 9 g 72 /min 105 mm[Hg] 52 mm[Hg] Julia Quispe in [facility], 9 08:32:39 Date Recorded Body height Body mass index (BMI) Body weight Body temperature Heart rate Systolic blood pressure Diastolic blood pressure Provider Name and Address Organization Details Last Updated DateTime 0 160.02 cm 26.3 kg/m2 70202.8 3 g 97.3 [degF] 65 /min 119 mm[Hg] 55 mm[Hg] Kiley Quispe in [facility], 0 08:35:26 Social History Question Answer Notes LastModified by Organizat ion Details LastModified Time Tobacco Smoking Status Former Smoker quit 07/2002 Not Available [employer] 07/14/2020 03:19:37 Do You Have An Advance Directive? No Health Care Proxy [id number] Information not available 07/14/2020 What Is Your Level Of Alcohol Consumption? Occasional Very Rare. [id number] Information not available 07/14/2020 What Is Your Level Of Caffeine Consumption? Moderate Information not available 07/31/2020 How Much Tobacco Do You Chew? None [id number] Information not available 07/14/2020 In The 14 Days Before Symptom Onset, Have You Had Close Contact With A Laboratory-confir med COVID-19 While That Case Was Ill? No Information not available 07/31/2020 In The 14 Days Before Symptom Onset, Have You Had Close Contact With A Person Who Is Under Investigation For COVID-19 While That Person Was Ill? No Information not available 07/31/2020 Have You Been To An Area Known To Be High Risk For COVID-19? No Information not available 07/31/2020 What Type Of Diet Are You Following? VEGETARIAN [id number] Information not available 07/14/2020 Which Illicit Or Recreational Drugs Have You Used? No [id number] Information not available 07/14/2020 Do You Reside In Or Have You Traveled To An Area Where Ebola Virus Transmission Is Active? No [id number] Information not available 07/14/2020 Do You Or Have You Ever Used E-cigarettes Or Vape? Never Used Electronic Cigarettes [id number] Information not available 07/14/2020 Education 4 Year College [email or web address] Informatio n not available 05/07/2019 What Is Your Occupation? Retired Information not available 07/31/2020 How Many Days In The Past Year Have You Had A Heavy Drinking Consumption (4+ Female, 5+ Male)? 0 Information no t available 05/07/2019 Are There Any Guns Present In Your Home? No [id number] Information not available 07/14/2020 High Number Of Sexual Partners No Information not available 05/07/2019 To Which Gender Do You Self-identify? Female Information not available 05/07/2019 Marital Status Informatio n not available 05/07/2019 What Was The Date Of Your Most Recent Tobacco Screening? 07/31/2020 Information not available 07/31/2020 Seat Belts Used Routinely Yes Information not available 05/07/2019 Are You Sexually Active? No [id number] Information not available 07/14/2020 Smoke Alarm In Home Yes Information not available 05/07/2019 Do You Or Have You Ever Used Smokeless Tobacco? Never Used Smokeless Tobacco [id number] Information not available 07/14/2020 How Much Tobacco Do You Smoke? No [id number] Information not available 07/14/2020 General Stress Level Medium Information not available 05/07/2019 Do You Use Sunscreen Routinely? Yes [id number] Information not available 07/14/2020 How Many Years Have You Smoked Tobacco? 30 [id number] Information not available 07/14/2020 Have You Recently (within The Last 12 Weeks, Or During A Current ) Traveled To Or Lived In A Zika-affected Area? No Information not available 05/07/2019 Sex: Female Functional Status Question Answer Note LastModified by Organization D etails LastModified Time What is your exercise level? Heavy [id number] Information not available 07/14/2020 Mental Status None recorded. Family History Relationship Description Onset Age of this Age Resolved Age Notes LastModified by Organization Details LastModified Time Father Malignant tumor of colon 76 [email or web address] Not available 2018 08:32:15 Mother Heart disease [email or web address] Not available 2018 08:32:30 Unspecified Relation Problem neice melano ma. tmeczywor Not available 07/04/2019 08:31:55 Medical History Condition Response Anesthesia complications N High Blood Pressure N Candidate for MyRisk panel N Autoimmune Condition N Kidney or Bladder Problems N Thyroid Problems N Depression N Lung Disease N GI Problems N Defects or Inherited Disease N History of Ovarian Cancer N Anemia N History of Breast Cancer N NURIS exposure N BRCA testing in past N Osteopenia N Psychiatric Illness N Anxiety Disorder N Diabetes N Arthritis N Headaches or Migraines N Infertility N Asthma N History of Cancer Y Endometriosis N Hepatitis N Heart Disease N Hypertension N Osteoporosis N Gynecological History Statement/Question Response If Post Menopausal, Age at Menopause 55 Duration of Flow (days) 0 Age at Menarche 12 Age at First Child 2 Obstetrics History GPAL:G 0 P 0 0 0 0 Immunizations Vaccine Type Date Status Note Provider Nam e and Address Organization Details Recorded Time varicella 9 completed JULIAN Macias in [facility], 05/07/2019 08:30:45 pneumococcal, unspecified formulation 7 completed JULIAN Macias in [facility], 05/07/2019 08:30:03 Tdap 7 completed JULIAN Macias in [facility], 05/07/2019 08:30:19 Influenza, split virus, quadrivalent, preservative 0 completed JULIAN Meier in [facility], 07/31/2020 08:37:45 Past Encounters Encounter ID Performer Location Encounter Start Date Encounter Closed Date Diagnosis/Indication Diagnosis SNOMED-CT Code Diagnosis ICD10 Code Diagnosis Note [id number] MD ROSHNI Steward MD [address] [facility] [place] [address] 05/07/2019 08:10:13 05/07/2019 11:55:23 Lichen sclerosus et atrophicus 83826116 L90.0 [id number] MD ROSHNI Steward MD [address] [facility] [place] [address] 07/04/2019 08:24:10 07/04/2019 09:21:36 Specialized medical examination 01389275 Z01.419 Screening mammography 24 448666 Z12.31 [id number] MD ROSHNI Steward MD [address] [facility] [place] [address] 07/31/2020 08:26:06 07/31/2020 11:08:00 Screening for malignant neoplasm of cervix 959300379 Z12.4 Screening mammography 24 584944 Z12.31 Screening for osteoporosis 960699887 Z13.820 Abnormal vaginal odor 62 364727 N89.8 Lichen scl erosus et atrophicus 27382960 L90.0 Increased frequency of urination 794181751 R35.0 Health Concerns Section Related Observation LastModified by Organization Detai ls LastModified Time None Recorded Concern Status LastModified by Organization Details LastModified Time None Recorded Advance Directives Directive N: health care proxy Payers Encounter Date Sequence Insurance Name Policy Number Policy Oro Covered Member ID Oro Member ID Guarantor Name 05/07/2019 1 [employer] - OPEN ACCESS PLUS [id number] [facility] [id number] [facility] 07/04/2019 1 [employer] - OPEN ACCESS PLUS [id number] [facility] [id number] [facility] 07/31/2020 1 [place] (MEDICARE REPLACEMENT PPO) [id number] [facility] [id number] [facility] Notes Date Note Type Note Provider Name and Address Organization Details Recorded Time 05/07/2019 text/html She is here for a new patient visit for a problem. She notes that she has had 2 to 4 year history of bumps on the vulva, and in the past year she has also developed pruritus of the skin down there. More in the back. She had a knee fracture then subsequent saddle embolus in 2017. Last obstetrics gyn physician visit with Dr. Archer was in 2009, last pap ws 2006. 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 Roshni Cole MD [address] [facility],[address], [place], [address], [place] [facility], 05/07/2019 11:32:44 07/04/2019 text/html She is here for annual exam. She has bene using the aristocort topically and notes that her pruritus is nearly resolved. ____ Note from 05/07/19: She is here for a new patient visit for a problem. She notes that she has had 2 to 4 year history of bumps on the vulva, and in the past year she has also developed pruritus of the skin down there. More in the back. She had a knee fracture then subsequent saddle embolus in 2017. Last obstetrics gyn physician visit with Dr. Archer was in 2009, last pap ws 2006. She works at [employer] at the [employer] in [place]. On exam: the bumps that she noted are bilateral sebaceous cysts, ranging from 2 to 7 mm in size, not inflamed, in the skin of the bilateral perineum and perirectal areas. The tisuses in the lower perineum also have lichen sclerosis changes, this is where she notes the pruritus, there is no ulceration, just thinning of the skin noted here. She is reassured that all this seems to be benign. Will rx with topical Aristocort, call if the pruritus persists, then would do a biopsy. Also she is overdue for annual and pap, return soon for this, she agrees. Roshni Cole MD [address] [facility],[address], [place], [address], [place] - [facility], 07/04/2019 08:59:23 07/31/2020 text/html She is here for annual exam, is doing well but has developed increased urinary frequency which limits her walks out of doors. She notes that the Aristocort has resolved the vulvar pruritus. She would like to continue that. She also has had a vaginal odor for a year, is using the Vagisil odor block . note from 2019: She is here for annual exam. She has been using the aristocort topically and notes that her pruritus is nearly resolved. Roshni Cole MD [address] [facility],[address], [place], [address], [place] [facility], 07/31/2020 09:10:36 OBGyn Episode No OBEpisode recorded.
--- OUTSIDE RECORDS SUMMARY | 2025-01-14 13:44 | XMS_ITS | Clinical Summary ---
Author Organization [facility] it Address [address] [place] [address] Care Team Providers Care Opticianry Teacher Name Role Phone Unavailable Primary Care Provider Unavailabl e Encounters Date Type Department Care Team Description 11/04/2024 Telephone Obstetrics and Gynecology - [place] [address] [place] [id number] Kay Burrell RN from Last 3 Months Social History Tobacco Use Types Packs/Day Years Used Date Smoking Tobacco: Never Assessed Comments Unknown Sex and Gender Information Value Date Recorded Sex Assigned at Not on file Legal Sex Female 8:58 PM EST Gender Identity Not on file Sexual Orientation Not on file Plan of Treatment Health Maintenance Due Date Last Done Comments Breast Cancer Screening 1950 DTaP,Tdap,and Td Vaccines (1 - Tdap) 11/30/1971 Pneumococcal Vaccine: 50+ Ye ars (1 of 1 - PCV) 2002 Zoster Vaccines (1 of 2) 2002 Colorectal Cancer Screening: Colonoscopy 08/13/2022 Depression Screening 08/13/2022 Falls Risk Assessment 08/13/2022 Hepatitis C Screening 08/13/2022 Osteoporosis Screening (Bone Density Screening) 08/13/2022 Social Influencers of Health Screening 08/13/2022 COVID-19 Vaccine ( - 2023-2 5 season) 2024 Influenza Vaccine (Season Ended) 2025 RSV Immunization Adult Patie nts (1 - 1-dose 75+ series) 11/30/2027 HIB Vaccines Aged Out No longer eligi ble based on patient's age to complete this topic HPV Vaccines Aged Out No longer eligi ble based on patient's age to complete this topic Hepatitis A Vaccines Aged Out No long er eligible based on patient's age to complete this topic Hepatitis B Vaccines Aged Out No long er eligible based on patient's age to complete this topic IPV Vaccines Aged Out No longer eligi ble based on patient's age to complete this topic MMR Vaccines Aged Out No longer eligi ble based on patient's age to complete this topic Meningococcal ACWY Vaccine Aged Out N o longer eligible based on patient's age to complete this topic Meningococcal B Vaccine Aged Out No l onger eligible based on patient's age to complete this topic RSV Immunization Patients Un becky 20 months Aged Out No longer eligible b ased on patient's age to complete this topic Varicella Vaccines Aged Out No longer eligible based on patient's age to complete this topic
== END 2025-01-14 12:55 | disposition home or self-care (01) ==
LOC: HO.HMCH 12:25
PROVIDERS: PCP Internal Medicine; Visit Provider Internal Medicine
DX: Z00.00 Encounter for general adult medical examination without abnormal findings (principal); D80.1 Nonfamilial hypogammaglobulinemia

== ENCOUNTER 2025-01-14 12:24 | Outpatient (REF) | payer BC, SELFPAY ==
[2025-01-14 13:18] LABS: MANUAL DIFF FLAG NO
[2025-01-14 14:12] LABS: Basophils Absolute Auto 0.1 X10*3/uL (0.0-0.2); Eosinophils Absolute Auto 0.2 X10*3/uL (0.0-0.4); Hematocrit 42.3 % (37.0-47.0); Hemoglobin 14.5 g/dl (12.0-16.0); Imm Gran Abs Auto 0.01 X10*3/uL (0.00-0.03); Imm Gran Pct Auto 0.2 % (0.0-0.4); Lymphocytes Absolute Auto 1.4 X10*3/uL (1.2-4.9); Lymphocytes Percent Auto 26.5 % (20-40); Mean Corpuscular HGB Conc 34.3 g/dl (31.0-35.0); Mean Corpuscular Volume 96.4 fL (80.0-98.0); Mean Platelet Volume 10.1 fL (9.4-12.3); Monocytes Absolute Auto 0.4 X10*3/uL (0.1-1.2); Monocytes Percent Auto 7.5 % (2-11); Neutrophils Absolute Auto 3.2 x10*3/uL (2.0-8.3); Neutrophils Percent Auto 60.8 % (45-73); Platelet Count 232 X10*3/uL (160-400); Red Blood Count 4.39 X10*6/uL (4.20-5.50); Red Cell Distribution Width 11.9 % (11.0-16.0); White Blood Count 5.2 X10*3/uL (4.8-10.8)
--- OUTSIDE RECORDS SUMMARY | 2025-01-14 14:19 | XMS_ITS | Clinical Summary ---
Author Organization [facility] it Address [address] [place] [address] Care Team Providers Care Crystallography Teacher Name Role Phone Unavailable Primary Care Provider Unavailabl e Encounters Date Type Department Care Team Description 11/04/2024 Telephone Obstetrics and Gynecology - [place] [address] [place] [id number] Kay Burrell RN from Last 3 Months [...]
[2025-01-14 18:23] LABS: Alanine Aminotransferase 26 U/L (0-31); Albumin Level 4.5 g/dL (3.5-5.0); Alkaline Phosphatase 80 U/L (39-117); Anion Gap 12 (12-20); Aspartate Amino Transferase 26 U/L (5-31); Bilirubin Total 0.6 mg/dL (0.0-1.0); Blood Urea Nitrogen 22 mg/dL (9-16); Calcium 9.7 mg/dL (8.4-10.2); Carbon Dioxide 28 mmol/L (22-29); Chloride 104 mmol/L (96-108); Cholesterol 232 mg/dL (<200); Estimated Glomerular Filt Rate > 60; Glucose Fasting 85 mg/dL (60-99); HDL Cholesterol 74 mg/dL (>40); LDL Cholesterol Calculated 138 mg/dL (<100); Potassium 3.7 mmol/L (3.3-5.1); Sodium 140 mmol/L (135-145); Total Protein 6.8 g/dL (6.5-8.0); Triglycerides 104 mg/dL (<150)
[2025-01-14 18:29] LABS: Vitamin D 25-OH Total 49.6 ng/mL (>30)
== END 2025-01-14 12:25 | disposition home or self-care (01) ==
LOC: HO.LAB 12:24
PROVIDERS: PCP Internal Medicine; Visit Provider Internal Medicine
DX: Z00.00 Encounter for general adult medical examination without abnormal findings (principal); D80.1 Nonfamilial hypogammaglobulinemia; E55.9 Vitamin D deficiency, unspecified; Z13.6 Encounter for screening for cardiovascular disorders
CPT/HCPCS: 36415; 80053; 80061; 82306; 85025; 96127